=== PATIENT | male | born 1975 | race Native Hawaiian/Other Pacific Islander ===

== ENCOUNTER 2020-01-23 08:41 | Outpatient (CLI) | payer OTHER | END 2020-01-23 23:28 | disposition home or self-care (01) | LOC: NM 08:41 | DX: L03.032 Cellulitis of left toe (principal) | CPT/HCPCS: A9561 ==

== ENCOUNTER 2020-10-03 13:20 | Outpatient (CLI) | payer OTHER | END 2020-10-03 23:05 | disposition home or self-care (01) | LOC: MRI 13:20 | PROVIDERS: ATTEND Surgery | DX: M86.8X8 Other osteomyelitis, other site (principal) | CPT/HCPCS: A9576 ==

== ENCOUNTER 2021-04-17 07:50 | Outpatient (CLI) | payer OTHER | END 2021-04-17 19:43 | disposition home or self-care (01) | LOC: NM 07:50 | PROVIDERS: ATTEND Surgery | DX: L03.032 Cellulitis of left toe (principal) | CPT/HCPCS: A9561 ==